=== PATIENT | male | born 1990 | race Caucasian/White ===

== ENCOUNTER 2020-10-19 07:49 | Emergency (ER) | payer BC ==
[2020-10-19] MEDS ORDERED: MEDROL4 MG PO (08:55)
[2020-10-19] MEDS ORDERED: BENADRYL25 MG PO (08:55)
[2020-10-19] MEDS ORDERED: EPIPEN 2-P0.3 MG/0.3 INJ (09:58)
== END 2020-10-19 11:05 | disposition home or self-care (01) ==
LOC: ER1 07:49
DX: T78.40XA Allergy, unspecified, initial encounter (principal)
CPT/HCPCS: 96372; 96374; 96375; 99282; J0171; J1200; J2930

== ENCOUNTER 2020-10-29 04:46 | Emergency (ER) | payer BC ==
[~2020-10-29 04:46] MED LIST: BENADRYL25 MG PO; EPIPEN 2-P0.3 MG/0.3 INJ; MEDROL4 MG PO
[2020-10-29] MEDS ORDERED: PREDNISONE 20 M20 MG PO (05:52)
== END 2020-10-29 06:55 | disposition home or self-care (01) ==
LOC: ER1 04:46
DX: T78.40XA Allergy, unspecified, initial encounter (principal)
CPT/HCPCS: 96365; 96375; 99282; J1100; J1200